=== PATIENT | female | born 1975 | race Caucasian/White ===

== ENCOUNTER 2021-07-16 14:38 | Emergency (ER) | payer OTHER ==
[~2021-07-16 14:38] MED LIST: LOPRESSOR25 MG PO
[2021-07-16 19:52] LABS: ALBUMIN 3.8 g/dL (3.4-5.0); BASOPHIL 0.7 % (0-2); BILIRUBIN - TOTAL 0.3 mg/dL (0.2-1.0); BUN/CREAT RATIO (CALC) 10.3 RATIO; CREATININE 0.68 mg/dL (0.51-0.95); EOSINOPHIL 2.4 % (0-5); GLOBULIN (CALCULATION) 3.9 g/dL; HCT 52.2 % (37.0-47.0); LYMPHOCYTE 52.5 % (15-48); MAGNESIUM 2.1 mg/dL (1.8-2.4); MCH 32.1 pg (25.0-31.0); MCHC 34.5 g/dL (32.0-36.0); MCV 93.2 fL (78.0-100.0); MONOCYTE 8.2 % (0-12); MPV 9.6 fL (6.0-9.5); NEUTROPHIL 35.5 % (41-80); NRBC 0; PLT 251 K/uL (150-400); POTASSIUM 3.8 mmol/L (3.5-5.1); TOTAL PROTEIN 7.7 g/dL (6.4-8.2); WBC 7.6 K/uL (4.0-10.5)
[2021-07-16 19:56] LABS: MONOSPOT (MONONUCLEOSIS) NEGATIVE (NEGATIVE)
[2021-07-16 21:41] LABS: CORONAVIRUS 2019 SARS-COV-2 NEGATIVE (NEGATIVE); INFLUENZA A NAA NEGATIVE (NEGATIVE)
== END 2021-07-16 22:29 | disposition home or self-care (01) ==
LOC: FER 14:38
PROVIDERS: Emergency Medicine Emergency Medical Services
DX: R51.9 Headache, unspecified (principal); H92.02 Otalgia, left ear; F17.200 Nicotine dependence, unspecified, uncomplicated; Z20.822 Contact with and (suspected) exposure to COVID-19
CPT/HCPCS: 36415; 70450; 80053; 83735; 85025; 86308; J1100; J1885; J7030; U0002

== ENCOUNTER 2021-08-04 12:48 | Emergency (ER) | payer OTHER ==
[2021-08-04 13:25] LABS: BILIRUBIN NEGATIVE (NEGATIVE); BLOOD NEGATIVE Ery/uL (NEGATIVE); CLARITY CLEAR (CLEAR); COLOR YELLOW (YELLOW); GLUCOSE (U) NORMAL (NORMAL); LEUKOCYTES NEGATIVE Leu/uL (NEGATIVE); NITRITE NEGATIVE (NEGATIVE); PROTEIN NEGATIVE (NEGATIVE); SPECIFIC GRAVITY <=1.005 (1.001-1.030); UROBILINOGEN 0.2 mg/dL (0.2-1.0)
[2021-08-04 13:27] LABS: AMPHETAMINES POSITIVE (NEGATIVE); BARBITURATES NEGATIVE (NEGATIVE); ECSTASY (MDMA) NEGATIVE (NEGATIVE); MARIJUANA (THC) NEGATIVE (NEGATIVE); METHADONE NEGATIVE (NEGATIVE); OPIATES NEGATIVE (NEGATIVE); OXYCODONE POSITIVE (NEGATIVE)
[2021-08-04 13:34] LABS: BASOPHIL 0.5 % (0-2); HCT 47.1 % (37.0-47.0); HGB 16.3 g/dl (12.5-16.0); MCH 32.6 pg (25.0-31.0); MCHC 34.6 g/dL (32.0-36.0); MCV 94.2 fL (78.0-100.0); MONOCYTE 9.1 % (0-12); MPV 9.4 fL (6.0-9.5); NEUTROPHIL 49.9 % (41-80); NRBC 0; PLT 287 K/uL (150-400); RDW 12.9 % (11.5-14.0); WBC 7.7 K/uL (4.0-10.5)
[2021-08-04 14:32] LABS: ALBUMIN 3.4 g/dL (3.4-5.0); ALKALINE PHOSHATASE 68 U/L (46-116); ALT 57 U/L (14-59); AST 34 U/L (15-37); BILIRUBIN - TOTAL 0.2 mg/dL (0.2-1.0); BUN 7 mg/dL (7-18); BUN/CREAT RATIO (CALC) 10.6 RATIO; CHLORIDE 102 mmol/L (98-107); CO2 (BICARBONATE) 25 mmol/L (21-32); CREATININE 0.66 mg/dL (0.51-0.95); GLOBULIN (CALCULATION) 3.5 g/dL; GLUCOSE 111 mg/dL (74-106); POTASSIUM 3.7 mmol/L (3.5-5.1); TOTAL PROTEIN 6.9 g/dL (6.4-8.2)
[2021-08-04 14:34] LABS: ACETAMINOPHEN (TYLENOL) <2.0 ug/mL (10.0-30.0)
== END 2021-08-04 18:00 ==
LOC: FER 12:48
PROVIDERS: Nurse Practitioner Family
DX: R44.0 Auditory hallucinations (principal); R44.1 Visual hallucinations; F20.9 Schizophrenia, unspecified; Z20.822 Contact with and (suspected) exposure to COVID-19
CPT/HCPCS: 36415; 80053; 80305; 81003; 85025; 99285; G0480; U0002